=== PATIENT | male | born 1990 | race Two or more races ===

== ENCOUNTER 2020-02-01 08:47 | Emergency (ER) | payer OTHER ==
[~2020-02-01] VITALS: Ht 182.9 cm; Wt 90.4 kg
[2020-02-01] MEDS ORDERED: NS 1,000 ML IV ONE (09:15)
[2020-02-01 09:43] LABS: BASO % 0.5 % (0.0-1.0); EOS # 0.1 10^3/uL (0.0-0.5); EOS % 2.8 % (0.0-3.0); HEMATOCRIT 45.1 % (42.0-52.0); HEMOGLOBIN 15.3 g/dl (13.5-17.5); LYMPH # 2.3 10^3/uL (1.5-5.0); LYMPH % 59.7 % (24.0-44.0); MEAN CORPUSCULAR HGB CONC 33.9 g/dl (32.0-36.5); MEAN CORPUSCULAR VOLUME 88.4 fl (80.0-96.0); MONO # 0.3 10^3/uL (0.0-0.8); MONO % 6.4 % (0.0-5.0); NEUTROPHILS # 1.2 10^3/uL (1.5-8.5); NEUTROPHILS % 30.3 % (36.0-66.0); PLATELET COUNT, AUTOMATED 225 10^3/uL (150-450); WHITE BLOOD COUNT 3.9 10^3/uL (4.0-10.0)
[2020-02-01 10:19] LABS: ALBUMIN 3.9 GM/DL (3.2-5.2); BILIRUBIN,DIRECT 0.2 MG/DL (0.0-0.2); BILIRUBIN,TOTAL 0.6 MG/DL (0.2-1.0); TOTAL PROTEIN 7.2 GM/DL (6.4-8.2)
--- NOTE | 2020-02-01 10:42 | REP ---
REASON: Right flank pain. PRIORS: None. The lung bases are clear. Limited evaluation of the solid intra-abdominal organs and gallbladder show no abnormalities. Limited evaluation of the pancreas and adrenal glands show no abnormalities. There is no nephroureterolithiasis, hydronephrosis, or hydroureter. The abdominal aorta and para-aortic regions are within normal limits. There is no free fluid or free air. The bowel loops and their mesenteries are within normal limits. CT PELVIS: The bowel loops and their mesenteries are within normal limits. There is no mass or adenopathy. There is no free fluid or free air. Bone window technique through the examination show the osseous structures to be within normal limits. IMPRESSION: CT findings are within normal limits. Electronically Signed by Zachery Crenshaw DO 02/01/2020 03:17 P
[2020-02-01 11:50] VITALS: BP 138/85
--- NOTE | 2020-02-01 12:08 | REP ---
REASON: Lower chest pain. COMPARISON: No priors. FINDINGS: The superior mediastinal structures are midline. The cardiac silhouette is unremarkable in size, shape, and position. The diaphragmatic surfaces of the lungs are regular, and the costophrenic angles are clear. The pulmonary viveros are clear. The imaged osseous structures are intact. IMPRESSION: There is no acute cardiopulmonary disease. Electronically Signed by Zachery Crenshaw DO 02/01/2020 03:19 P
== END 2020-02-01 11:58 | disposition home or self-care (01) ==
LOC: M ED 08:47
DX: R10.9 Unspecified abdominal pain (principal); R39.198 Other difficulties with micturition; Z88.8 Allergy status to other drugs, medicaments and biological substances

== ENCOUNTER → 2020-02-04 | Outpatient (CLI) | payer OTHER ==
--- NOTE | 2020-02-04 18:39 | REP ---
Clinical: Right upper quadrant pain. Technique: Real time archibald scale ultrasound examination using curved array transducer. Findings: The liver suggests mild fatty infiltration with focal fatty sparing at the gallbladder fossa. The pancreas is incompletely evaluated but visualized portions appear normal. The gallbladder is unremarkable and without gallstones, wall thickening, or pericholecystic fluid. No biliary ductal dilatation is appreciated and the common bile duct measures 3.3 mm diameter. The right kidney is normal in reniform shape without hydronephrosis and measures 11.7 x 5.3 x 5.4 cm. No ascites. Impression: Mild hepatic steatosis. Otherwise normal right upper quadrant ultrasound. Electronically Signed by Dmitry Salazar MD 02/04/2020 06:30 P
== END ==
LOC: M RAD 08:05
PROVIDERS: ATTEND Physician Assistant Medical
DX: K76.0 Fatty (change of) liver, not elsewhere classified (principal); R10.11 Right upper quadrant pain